=== PATIENT | female | born 2000 | race Caucasian/White ===

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

== ENCOUNTER → 2020-01-20 | Outpatient (CLI) | payer OTHER ==
[~2020-01-20] MED LIST changes: -NS 1,000 ML IV ONE; +PANT40TA29 PO; -PANT40TA3 PO
--- NOTE | 2020-01-20 14:34 | REPVR ---
PROCEDURE INFORMATION: Exam: MR Lumbar Spine Without Contrast. Exam date and time: 01/20/2020 2:00 PM Age: 19 years old Clinical indication: Low back pain; Additional info: Incontinence TECHNIQUE: Imaging protocol: Multiplanar magnetic resonance images of the lumbar spine without intravenous contrast. COMPARISON: MRI-Spine, L.S. without con 04/09/2019 9:54 AM FINDINGS: Vertebrae: Examination again demonstrates a moderate levoscoliosis at the thoracolumbar junction. Otherwise,The lumbar vertebral bodies are normal in height,signal intensity and alignment.No acute fracture or dislocation is seen. Spinal epidural space: There is no evidence of epidural masses or hemorrhage. Spinal cord: The conus medullaris is normal. The cauda equina nerve roots demonstrate no crowding or displacement. L1-L2: There is no significant degenerative disc herniation.The spinal canal and neural foramina are patent and without significant stenosis. L2-L3: There is no significant degenerative disc herniation.The spinal canal and neural foramina are patent and without significant stenosis. L3-L4: There is no significant degenerative disc herniation.The spinal canal and neural foramina are patent and without significant stenosis. Mild facet arthropathy. L4-L5: There is no significant degenerative disc herniation.The spinal canal and neural foramina are patent and without significant stenosis. Mild facet arthropathy. L5-S1: Mildly reduced in height and T2 signal indicating degeneration. Small diffuse posterior herniation with posterior central annular tear. Mild facet arthropathy.There is no evidence of spinal canal narrowing.There is mild bilateral foraminal stenosis. Soft tissues: The prevertebral soft tissues appear normal. IMPRESSION: 1. MRI of the lumbar spine reveals mild interval progression of degenerative spondylitic changes and degenerative disc disease at L5-S1 level as described above. 2. Examination again demonstrates a moderate levoscoliosis at the thoracolumbar junction. Otherwise,The lumbar vertebral bodies are normal in height,signal intensity and alignment.No acute fracture or dislocation is seen. Electronically signed by: Emilio Gonzales On 01/20/2020 14:34:16 PM
== END ==
LOC: M RAD 13:07
PROVIDERS: ATTEND Nurse Practitioner Family
DX: R32 Unspecified urinary incontinence (principal)